=== PATIENT | female | born 1955 | race Caucasian/White ===

== ENCOUNTER → 2025-01-28 | Outpatient (CLI) | payer MEDICARE, MEDICAID, SELFPAY ==
[2025-01-28 11:34] LABS: Basophils % (Auto) 1 % (0-2.5); Eosinophils # (Auto) 0.1 Thou/mm3 (0.0-0.5); Eosinophils % (Auto) 1 % (0-10); Hematocrit 40.4 % (36.0-46.0); Hemoglobin 13.3 g/dL (12.0-16.0); Immature Granulocytes % (Auto) 0 % (0-0); Immature Granulocytes Auto 0.02 Thou/mm3 (0.00-0.00); Lymphocytes # (Auto) 1.7 Thou/mm3 (1.0-4.8); Lymphocytes % (Auto) 25 % (10-50); Mean Corpuscular HGB Conc 32.9 g/dl (31.0-37.0); Mean Corpuscular Hemoglobin 32.6 pg (25.0-35.0); Mean Corpuscular Volume 99 fL (80-100); Monocytes # (Auto) 0.6 Thou/mm3 (0.0-0.8); Monocytes % (Auto) 9 % (0-12); Neutrophils # (Auto) 4.4 Thou/mm3 (1.8-7.7); Neutrophils % (Auto) 64 % (37-80); Nucleated Red Blood Cell % 0 /100 WBC (0); Platelet Count 285 Thou/mm3 (140-440); RDW Standard Deviation 45.9 fL (36.4-46.3); Red Blood Count 4.08 Miln/mm3 (4.00-5.20); White Blood Count 6.9 Thou/mm3 (3.6-11.0)
[2025-01-28 11:40] LABS: Glucose Estimated Average 105 mg/dL (80-131); Hemoglobin A1C 5.3 % Hgb (4.8-6.0)
[2025-01-28 11:46] LABS: T4 (Thyroxine) 6.2 mcg/dL (4.5-10.9)
[2025-01-28 11:53] LABS: Alanine Aminotransferase 44 U/L (10-49); Albumin, Serum 4.2 gm/dL (3.4-4.8); Albumin/Globulin Ratio 1.7 (1.2-2.2); Alkaline Phosphatase 86 U/L (46-116); Anion Gap 10 (7-16); Aspartate Amino Transferase 53 U/L (0-34); BUN/Creatinine Ratio 11 Ratio (12-20); Bilirubin,Total 0.6 mg/dL (0.3-1.2); Blood Urea Nitrogen 12 mg/dL (9-23); Calcium 9.2 mg/dL (8.3-10.6); Calcium (Corrected) 9.2 mg/dL (8.5-10.1); Carbon Dioxide 25.8 mMol/L (20.0-31.0); Cardiac Risk Estimate 3.4 RATIO (3.7-5.6); Chloride 104 mMol/L (98-107); Cholesterol 184 mg/dL (132-200); Creatinine (Component) 1.1 mg/dL (0.6-1.3); Globulin 2.5 gm/dL (2.3-3.5); Glucose 92 mg/dL (74-106); HDL Cholesterol 54 mg/dL (40-60); LDL Cholesterol,Calculated 111 mg/dL (0-130); Osmolality,Calculated 279 (275-295); Potassium 4.8 mMol/L (3.4-5.1); Sodium 140 mMol/L (136-145); Thyroid Stimulating Hormone 1.01 uIU/mL (0.55-4.78); Total Protein 6.7 gm/dL (5.7-8.2); Triglycerides 94 mg/dL (30-150); eGFR 54 See Note
== END | disposition home or self-care (01) ==
LOC: COPL 10:17
PROVIDERS: PCP Family Medicine; Referring Provider Nurse Practitioner Family; Visit Provider Nurse Practitioner Family
DX: E78.5 Hyperlipidemia, unspecified (principal); I10 Essential (primary) hypertension; R53.83 Other fatigue
CPT/HCPCS: 36415; 80053; 80061; 83036; 84436; 84443; 85025

== ENCOUNTER 2025-08-12 06:30 | Day surgery (SDC) | payer MEDICARE, MEDICAID, SELFPAY ==
[2025-08-10 09:24] VITALS: BMI 22.9
--- NOTE | 2025-08-11 07:00 | EKG_ITS ---
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
[2025-08-11 17:44] LABS: Basophils # (Auto) 0.1 Thou/mm3 (0.0-0.2); Basophils % (Auto) 1 % (0-2.5); Eosinophils # (Auto) 0.2 Thou/mm3 (0.0-0.5); Eosinophils % (Auto) 3 % (0-10); Hematocrit 37.8 % (36.0-46.0); Hemoglobin 12.2 g/dL (12.0-16.0); Immature Granulocytes Auto 0.03 Thou/mm3 (0.00-0.00); Lymphocytes # (Auto) 2.7 Thou/mm3 (1.0-4.8); Lymphocytes % (Auto) 27 % (10-50); Mean Corpuscular HGB Conc 32.3 g/dl (31.0-37.0); Mean Corpuscular Hemoglobin 32.4 pg (25.0-35.0); Mean Corpuscular Volume 100 fL (80-100); Monocytes # (Auto) 0.8 Thou/mm3 (0.0-0.8); Monocytes % (Auto) 9 % (0-12); Neutrophils # (Auto) 5.8 Thou/mm3 (1.8-7.7); Neutrophils % (Auto) 61 % (37-80); Nucleated Red Blood Cell # 0.00 Thou/mm3 (0.00-0.00); Nucleated Red Blood Cell % 0 /100 WBC (0); Platelet Count 281 Thou/mm3 (140-440); RDW Standard Deviation 45.5 fL (36.4-46.3); Red Blood Count 3.77 Miln/mm3 (4.00-5.20); White Blood Count 9.7 Thou/mm3 (3.6-11.0)
[2025-08-11 17:45] LABS: Anion Gap 12 (7-16); BUN/Creatinine Ratio 20 Ratio (12-20); Blood Urea Nitrogen 20 mg/dL (9-23); Calcium 9.7 mg/dL (8.3-10.6); Carbon Dioxide 28.6 mMol/L (20.0-31.0); Chloride 103 mMol/L (98-107); Creatinine (Component) 1.0 mg/dL (0.6-1.3); Estimated Creatinine Clearance 37.3 mL/min (>60); Glucose 116 mg/dL (74-106); Osmolality,Calculated 290 (275-295); Potassium 3.6 mMol/L (3.4-5.1); Sodium 144 mMol/L (136-145); eGFR > 60 See Note
[2025-08-11 17:51] LABS: Partial Thromboplastin Time 24.5 Seconds (22.0-36.0)
[2025-08-11 20:36] LABS: INR 0.9 (0.9-1.3); Prothrombin Time 9.9 Seconds (9.0-12.2)
[2025-08-12] VITALS (11 sets, daily range): BP systolic 119–142; BP diastolic 60–97; PULSE 60–78; RESP 13–24; TEMP 36–36.6; O2SAT 95–98
[2025-08-12] MEDS: HYDROCORTISONE SOD SUCC INJ 100 MG 2 ML VIAL IV (07:26)
[2025-08-12] MEDS: FAMOTIDINE INJ 10 MG/ML VIAL 2 ML 20 MG IVP (07:27)
--- NOTE | 2025-08-12 07:28 | CHAP ---
Visited briefly with patient giving encouragement and prayer.
--- NOTE | 2025-08-12 09:13 | ESOP_ITS ---
RE: LANDEN LEZAMA : 1955 DATE OF OPERATION: 08/12/2025 PROCEDURES PERFORMED: 1. Diagnostic left heart cardiac catheterization, selective coronary angiogram, left ventricular angiogram (CPT 32052). 2. Conscious sedation, 30-minute duration. 3. Ultrasound-guided access to right radial artery. DIAGNOSES: 1. Coronary artery disease. 2. Abnormal stress test. HISTORY AND INDICATION: The patient is a 69-year-old female with a past medical history of hypertension, chest pressure. Cardiac stress test was negative. Cardiac nuclear scan was abnormal hence coronary angiogram and cardiac catheterization is performed to assess patient's candidacy for coronary intervention revascularization. PROCEDURE DETAIL: Patient brought to cardiac catheterization laboratory. She was given conscious sedation, 1 mg Versed and 50 mcg of fentanyl. The right radial approach was taken. Right radial artery cannulated by micropuncture technique and a 5-[place] Glidesheath was introduced. Left coronary angiogram performed by a TIG 4 diagnostic catheter. Left heart catheterization and left ventricular angiogram performed by a TIG 4 diagnostic catheter. Patient tolerated the procedure well, no complication. Cardiac catheterization showed following findings: Hemodynamic: Left ventricular pressure 105/2, EDP 10, aortic pressure 105/70. No gradient across the aortic valve. Left ventricular angiogram showed normal left ventricular wall motion, ejection fraction 70%. Coronary angiogram showed following findings: Right coronary artery large and dominant, appeared normal, no significant stenosis. Left coronary system: Left main coronary artery is normal, left anterior descending artery is normal. Circumflex artery is normal, no significant stenosis. SUMMARY POINTS OF THE STUDY: 1. Normal nonobstructive epicardial coronary arteries. 2. Normal left ventricular systolic function, ejection fraction 60-65%. RECOMMENDATIONS: Patient is reassured about absence of significant and obstructive coronary artery disease. Prognosis is excellent. DT: 08:54:50 TT: 09:12:00 Ref: [id number] - TID: [id number] [facility]
== END 2025-08-12 11:15 | disposition home or self-care (01) ==
PROVIDERS: PCP Internal Medicine; Referring Provider Internal Medicine Cardiovascular Disease; Visit Provider Internal Medicine Cardiovascular Disease
PROC: (CPT 93458; principal; 2025-08-12 07:30)
DX: I25.118 Atherosclerotic heart disease of native coronary artery with other forms of angina pectoris (principal); Z95.0 Presence of cardiac pacemaker; I44.7 Left bundle-branch block, unspecified; I10 Essential (primary) hypertension; Z01.810 Encounter for preprocedural cardiovascular examination; Z79.82 Long term (current) use of aspirin
CPT/HCPCS: 93458; 36415; 80048; 85025; 85610; 85730; 93005; 99152; A4649; C1887; C1894; J0153; J0168; J0282; J0461; J1200; J1643; J1720; J2250; J2312; J2371; J3010; J3490; Q9967; J2305